=== PATIENT | female | born 1955 | race Two or more races ===

== ENCOUNTER → 2016-06-17 | Outpatient (CLI) | payer MEDICARE ==
[2016-06-17 16:46] LABS: ABSOLUTE EOSINOPHILS # (AUTO) 0.1 10^3/uL (0.0-0.6); ABSOLUTE LYMPHOCYTES (AUTO) 1.7 10^3/uL (0.5-4.7); ABSOLUTE MONOCYTES (AUTO) 0.5 10^3/uL (0.1-1.4); ABSOLUTE NEUT (AUTO) 5.8 10^3/uL (1.7-8.2); BASOPHILS % (AUTO) 0.3 % (0-2); HEMATOCRIT 40.9 % (36.0-47.0); HEMOGLOBIN 13.8 g/dL (12.0-15.5); HGB HCT DIFFERENCE 0.5; LYMPHOCYTES % (AUTO) 21.3 % (13-45); MEAN CORPUSCULAR HEMOGLOBIN 31.1 pg (27.0-33.4); MEAN CORPUSCULAR HGB CONC 33.6 g/dL (32.0-36.0); MEAN CORPUSCULAR VOLUME 92 fl (80-97); MONOCYTES % (AUTO) 6.5 % (3-13); RED BLOOD COUNT 4.43 10^6/uL (3.72-5.28); SEGMENTED NEUTROPHILS % (AUTO) 70.9 % (42-78); WHITE BLOOD COUNT 8.1 10^3/uL (4.0-10.5)
[2016-06-17 16:49] LABS: APPEARANCE,URINE CLEAR; BILIRUBIN,URINE NEGATIVE (NEGATIVE); GLUCOSE, URINE >=500 mg/dL (NEGATIVE); KETONES,URINE NEGATIVE (NEGATIVE); LEUKOCYTE ESTERASE,URINE NEGATIVE (NEGATIVE); NITRITE,URINE NEGATIVE (NEGATIVE); PROTEIN,URINE NEGATIVE (NEGATIVE); UROBILINOGEN,URINE NEGATIVE mg/dL (<2.0)
[2016-06-17 17:09] LABS: ALANINE AMINOTRANSFERASE 31 U/L (9-52); ALBUMIN 4.1 g/dL (3.5-5.0); ALKALINE PHOSPHATASE 92 U/L (38-126); ANION GAP 11 (5-19); ASPARTATE AMINO TRANSFERASE 15 U/L (14-36); BILIRUBIN,TOTAL 0.4 mg/dL (0.2-1.3); BLOOD UREA NITROGEN 14 mg/dL (7-20); CALCIUM 9.5 mg/dL (8.4-10.2); CARBON DIOXIDE 26 mmol/L (22-30); CHLORIDE 103 mmol/L (98-107); CREATININE RESULT 0.65 mg/dL (0.52-1.25); GLUCOSE 142 mg/dL (75-110); POTASSIUM 4.1 mmol/L (3.6-5.0); SODIUM 140.4 mmol/L (137-145); TOTAL PROTEIN 6.4 g/dL (6.3-8.2)
== END ==
LOC: LAB 16:30
PROVIDERS: ATTEND Internal Medicine Cardiovascular Disease
DX: E83.42 Hypomagnesemia (principal); Z79.01 Long term (current) use of anticoagulants; Z79.899 Other long term (current) drug therapy
CPT/HCPCS: 36415; 80048; 80076; 81001; 82272; 83735; 85025; 85730

== ENCOUNTER 2016-08-23 10:43 | Emergency (ER) | payer MEDICARE ==
--- NOTE | 2016-08-23 11:33 | ER Document Report ---
ED Medical Screen (RME) - General Chief Complaint: Shortness Of Breath Stated Complaint: DIFFICULTY BREATHING Time Seen by Provider: 08/23/16 11:21 Notes: Patient is a 60-year-old female presents emergency department complaining of sore throat and shortness of breath. Son states that there was sudden onset last evening and that she has been having difficulty breathing all morning. non-smoker, no history of COPD. Denies any fevers or chills. Patient upgraded to [place] level 2 with concerns for epiglottitis I have greeted and performed a rapid initial assessment of this patient. A comprehensive ED assessment and evaluation of the patient, analysis of test results and completion of the medical decision making process will be conducted by additional ED providers. Patient taken to Trauma bed 2 TRAVEL OUTSIDE OF THE [place] IN LAST 30 DAYS: No - Related Data Allergies/Adverse Reactions: No Known Allergies Allergy (Verified 08/23/16 10:59) Past Medical History - Past Medical History Cardiac Medical History: Reports: Hx Atrial Fibrillation, Hx Hypercholesterolemia, Hx Hypertension Endocrine Medical History: Reports: Hx Diabetes Mellitus Type 2 Renal/ Medical History: Denies: Hx Peritoneal Dialysis Psychiatric Medical History: Reports: Hx Depression Past Surgical History: Reports: Hx Abdominal Surgery - Hernia Repair, Hx Cholecystectomy, Hx Herniorrhaphy, Hx Hysterectomy, Hx Orthopedic Surgery - Carpal Tunnel, Hx Thyroid Surgery Physical Exam - Vital signs Vitals: Temp Pulse Resp BP Pulse Ox 97.9 F 81 20 131/74 H 98 08/23/16 10:59 08/23/16 10:59 08/23/16 10:59 08/23/16 10:59 08/23/16 10:59 - HEENT Pharynx: Normal, Other - Uvula midline. Airway patent. No evidence of tonsillar enlargement, peritonsillar abscess, retropharyngeal abscess. Neck: Normal - Respiratory Respiratory status: Respiratory distress Chest status: Nontender Breath sounds: Stridor Chest palpation: Normal Course - Vital Signs Vital signs: Temp Pulse Resp BP Pulse Ox 97.9 F 81 20 131/74 H 98 08/23/16 10:59 08/23/16 10:59 08/23/16 10:59 08/23/16 10:59 08/23/16 10:59
[2016-08-23] MEDS ORDERED: DEXAMETHASONE SOD PHOS INJ 10 MG/1 ML VIAL IV ONE (11:35)
[2016-08-23] MEDS ORDERED: RACEPINEPHRINE HCL 2.25% NEB 0.5 ML AMPUL NEB ONE (11:43)
[2016-08-23 11:53] LABS: ABSOLUTE LYMPHOCYTES (AUTO) 0.9 10^3/uL (0.5-4.7); ABSOLUTE MONOCYTES (AUTO) 0.7 10^3/uL (0.1-1.4); ABSOLUTE NEUT (AUTO) 10.4 10^3/uL (1.7-8.2); BASOPHILS % (AUTO) 0.1 % (0-2); EOSINOPHILS % (AUTO) 0.3 % (0-6); HEMATOCRIT 45.4 % (36.0-47.0); HGB HCT DIFFERENCE -0.4; LYMPHOCYTES % (AUTO) 7.2 % (13-45); MEAN CORPUSCULAR HEMOGLOBIN 30.1 pg (27.0-33.4); MEAN CORPUSCULAR VOLUME 91 fl (80-97); MONOCYTES % (AUTO) 5.7 % (3-13); RED BLOOD COUNT 4.98 10^6/uL (3.72-5.28); RED CELL DISTRIBUTION WIDTH 13.6 % (11.5-14.0); SEGMENTED NEUTROPHILS % (AUTO) 86.7 % (42-78)
[2016-08-23] MEDS ORDERED: LORAZEPAM INJ 2 MG/1 ML VIAL IV ONE (12:05)
[2016-08-23] MEDS ORDERED: CEFTRIAXONE RTU 1 GM/D5W 50 ML IV ONE (12:06)
[2016-08-23 12:13] LABS: ALANINE AMINOTRANSFERASE 32 U/L (9-52); ALBUMIN 4.5 g/dL (3.5-5.0); ALKALINE PHOSPHATASE 123 U/L (38-126); ANION GAP 13 (5-19); ASPARTATE AMINO TRANSFERASE 17 U/L (14-36); BILIRUBIN,DIRECT 0.4 mg/dL (0.0-0.4); BLOOD UREA NITROGEN 14 mg/dL (7-20); CALCIUM 9.8 mg/dL (8.4-10.2); CARBON DIOXIDE 29 mmol/L (22-30); CHLORIDE 100 mmol/L (98-107); CREATININE RESULT 0.67 mg/dL (0.52-1.25); GLUCOSE 139 mg/dL (75-110); LIPASE 58.4 U/L (23-300); POTASSIUM 4.1 mmol/L (3.6-5.0); SODIUM 142.4 mmol/L (137-145); TOTAL PROTEIN 7.2 g/dL (6.3-8.2)
--- NOTE | 2016-08-23 12:17 | ER Document Report ---
ED Respiratory Problem - General Mode of Arrival: Wheelchair Information source: Patient TRAVEL OUTSIDE OF THE [place] IN LAST 30 DAYS: No - HPI Patient complains to provider of: Cough, Short of breath Onset: This morning Duration: Continuous Initiating Event: URI Quality of pain: Achy Pain Level: 4 Context: denies: Hx asthma, Recent immobilization, Recent surgery Associated symptoms: Anxiety, Cough, Short of breath, Sore Throat. denies: Chest pain/discomfort, Congestion, Fever Similar symptoms previously: No Recently seen / treated by doctor: No <JOI GREEN - Last Filed: 08/23/16 18:26> <LOS HAUSER - Last Filed: 08/23/16 20:48> - General Chief Complaint: Shortness Of Breath Stated Complaint: DIFFICULTY BREATHING Time Seen by Provider: 08/23/16 11:21 Notes: Patient states that she had difficulty swallowing and sorethraot that woke her up around 6 AM. Patient complains of throat discomfort and a feeling like her throat is closing up. Patient reports nausea and diarrhea today but denies any vomiting. Patient does complain of mild cough. Pt states she has coughed so hard that her stomach is sore. (JOI GREEN) - Related Data Allergies/Adverse Reactions: No Known Allergies Allergy (Verified 08/23/16 10:59) Past Medical History - General Information source: Patient, Relative - Social History Smoking Status: Never Smoker Chew tobacco use (# tins/day): No Frequency of alcohol use: None Drug Abuse: None Occupation: none Lives with: Family Family History: Reviewed & Not Pertinent Patient has suicidal ideation: No Patient has homicidal ideation: No - Past Medical History Cardiac Medical History: Reports: Hx Atrial Fibrillation, Hx Hypercholesterolemia, Hx Hypertension Endocrine Medical History: Reports: Hx Diabetes Mellitus Type 2, Hx Hypothyroidism Renal/ Medical History: Denies: Hx Peritoneal Dialysis Psychiatric Medical History: Reports: Hx Depression Past Surgical History: Reports: Hx Abdominal Surgery - Hernia Repair, Hx Cholecystectomy, Hx Herniorrhaphy, Hx Hysterectomy, Hx Orthopedic Surgery - Carpal Tunnel, Hx Thyroid Surgery - Immunizations Hx Diphtheria, Pertussis, Tetanus Vaccination: No <JOI GREEN - Last Filed: 08/23/16 18:26> Review of Systems - Review of Systems Constitutional: Recent illness - URI. denies: Fever EENT: Nose congestion, Throat pain, Difficulty swallowing Cardiovascular: No symptoms reported. denies: Chest pain Respiratory: Cough, Short of breath Gastrointestinal: Abdominal pain - from coughing, Diarrhea, Nausea. denies: Vomiting Genitourinary: No symptoms reported Female Genitourinary: No symptoms reported Musculoskeletal: No symptoms reported. denies: Back pain Skin: No symptoms reported Hematologic/Lymphatic: No symptoms reported Neurological/Psychological: Headaches. denies: Weakness <JOI GREEN - Last Filed: 08/23/16 18:26> Physical Exam - General General appearance: Alert, Anxious In distress: Mild - HEENT Head: Normocephalic, [place]'s eyes Eyes: Normal Conjunctiva: Normal Ears: Normal External canal: Normal Tympanic membrane: Normal Mouth/Lips: Normal. No: Angioedema Mucous membranes: Normal Pharynx: Post nasal drainage, Other - stridor that improves with distraction. No: Erythema, Exudate, Peritonsillar abscess, Retropharyngeal abscess, Tonsillar hypertrophy, Uvular edema, Potential airway comprom. Neck: Normal, Supple. No: Lymphadenopathy - Respiratory Respiratory status: No respiratory distress. No: Depressed respirations, Labored, Retractions Chest status: Nontender Breath sounds: Nonproductive cough, Wheezing Chest palpation: Normal - Cardiovascular Rhythm: Regular Heart sounds: S1 appreciated, S2 appreciated Murmur: No - Abdominal Inspection: Normal Distension: No distension Bowel sounds: Normal Tenderness: Tender - lower pelvic tenderness with cough - Back Back: Normal, Nontender. No: CVA tenderness - Extremities General upper extremity: Normal inspection, Normal strength General lower extremity: Normal inspection, Normal strength - Neurological Neuro grossly intact: Yes Cognition: Normal [place] Coma Scale Eye Opening: Spontaneous [place] Coma Scale Verbal: Oriented [place] Coma Scale Motor: Obeys Commands [place] Coma Scale Total: 15 - Psychological Associated symptoms: Anxious, Tearful - Skin Skin Temperature: Warm Skin Moisture: Dry Skin Color: Normal <JOI GREEN - Last Filed: 08/23/16 18:26> <LOS HAUSER - Last Filed: 08/23/16 20:48> - Vital signs Vitals: Temp Pulse Resp BP Pulse Ox 97.9 F 81 20 131/74 H 98 08/23/16 10:59 08/23/16 10:59 08/23/16 10:59 08/23/16 10:59 08/23/16 10:59 - HEENT Notes: pt managing oral secretions (JOI GREEN) Course - Laboratory Result Diagrams: 08/23/16 11:30 08/23/16 11:30 - Diagnostic Test Radiology reviewed: Reports reviewed <JOI GREEN - Last Filed: 08/23/16 18:26> - Laboratory Result Diagrams: 08/23/16 11:30 08/23/16 11:30 <LOS AHUSER - Last Filed: 08/23/16 20:48> - Re-evaluation Re-evalutation: 08/23/16 12:06 dr Hauser to bedside for examination, recommends ct ST neck with iv contrast without waiting for labs to be results, also recommends ative 0.5 mg iv now. 08/23/16 13:14 Patient removed from oxygen, patient repositioned, oxygen saturation remained between 94 and 96%. Patient states that throat discomfort symptoms and difficulty breathing symptoms seem to be improved slightly. Consulted with Dr. Hauser who recommends road testing patient to see where her oxygen saturation remains. 08/23/16 15:35 Patient's vital signs remained stable, patient without any stridor, respirations even and unlabored. Patient reports that she is feeling better. Discussed worsening signs or symptoms the patient to return immediately for. Patient and her son verbalized understanding and agree with plan of care. Consulted with Dr. Hauser who recommends discharging patient with a course of steroids and giving good return precautions. (JOI GREEN) 08/23/16 20:47 I did personally seen and examined this patient, she is complaining of feeling like her throat is swelling however she is easily distractible, initially she does appear to have some stridor on exam however when distracted her breathing columns and she is no longer stridorous, CAT scan of the neck did not reveal any soft tissue swelling beyond the soft palate and this is not seen on exam, there is no RPA. Patient will be discharged home on steroids, asked to return for any further difficulty breathing. Patient is feeling much better on discharge. She does have some postnasal drip that may be contributing to the feeling of swelling in her throat. (LOS HAUSER) - Vital Signs Vital signs: Temp Pulse Resp BP Pulse Ox 98 F 81 17 144/85 H 94 08/23/16 15:48 08/23/16 10:59 08/23/16 15:42 08/23/16 15:42 08/23/16 15:42 - Laboratory Laboratory results interpreted by me: 08/23/16 08/23/16 11:30 11:30 WBC 12.0 H Seg Neutrophils % 86.7 H Lymphocytes % 7.2 L Absolute Neutrophils 10.4 H Glucose 139 H 08/23/16 15:35 Labs- Entire Visit 08/23/16 08/23/16 08/23/16 11:30 11:30 14:02 WBC 12.0 H RBC 4.98 Hgb 15.0 Hct 45.4 MCV 91 MCH 30.1 MCHC 33.0 RDW 13.6 Plt Count 150 Seg Neutrophils % 86.7 H Lymphocytes % 7.2 L Monocytes % 5.7 Eosinophils % 0.3 Basophils % 0.1 Absolute Neutrophils 10.4 H Absolute Lymphocytes 0.9 Absolute Monocytes 0.7 Absolute Eosinophils 0.0 Absolute Basophils 0.0 Sodium 142.4 Potassium 4.1 Chloride 100 Carbon Dioxide 29 Anion Gap 13 BUN 14 Creatinine 0.67 Est GFR ( Amer) > 60 Est GFR (Non-Af Amer) > 60 Glucose 139 H Calcium 9.8 Total Bilirubin 1.0 Direct Bilirubin 0.4 Indirect Bilirubin Not Reportable Neonat Total Bilirubin Not Reportable AST 17 ALT 32 Alkaline Phosphatase 123 Total Protein 7.2 Albumin 4.5 Lipase 58.4 Group A Strep Rapid NEGATIVE 08/23/16 18:26 (JOI GREEN) Discharge <JOI GREEN - Last Filed: 08/23/16 18:26> <LOS HAUSER - Last Filed: 08/23/16 20:48> - Discharge Clinical Impression: Sore throat (viral) Upper respiratory infection Qualifiers: URI type: unspecified URI Qualified Code(s): J06.9 - Acute upper respiratory infection, unspecified Condition: Stable Disposition: HOME, SELF-CARE Instructions: Upper Respiratory Illness ([facility]), Acetaminophen, Sore Throat ([facility]) , Steroid Medication Additional Instructions: Return immediately for any new or worsening symptoms Followup with your primary care provider, call tomorrow to make a followup appointment Prescriptions: Prednisone [Deltasone 20 mg Tablet] 3 tab PO DAILY 4 Days Referrals: DANNA PATE PA-C [Primary Care Provider] - 08/25/16
[2016-08-23 15:47] VITALS: BP 144/85
== END 2016-08-23 15:48 | disposition home or self-care (01) ==
LOC: ER 10:43
DX: J02.8 Acute pharyngitis due to other specified organisms (principal); B97.89 Other viral agents as the cause of diseases classified elsewhere; J06.9 Acute upper respiratory infection, unspecified; R05 Cough; R06.02 Shortness of breath; R13.10 Dysphagia, unspecified; R09.82 Postnasal drip; R09.81 Nasal congestion; R11.0 Nausea; R19.7 Diarrhea, unspecified; R10.9 Unspecified abdominal pain; R51 Headache; R06.1 Stridor; R06.2 Wheezing; I10 Essential (primary) hypertension; E11.9 Type 2 diabetes mellitus without complications; Z90.710 Acquired absence of both cervix and uterus; Z90.49 Acquired absence of other specified parts of digestive tract
CPT/HCPCS: 94640; 99285; 96375; 96365; 36415; 87040; 87070; 87880; 83690; 85025; 80053; 71010; 70360; 70491; J2060; J0696; J1100; J3490

== ENCOUNTER → 2016-09-11 | Outpatient (CLI) | payer MEDICARE ==
[2016-09-11 15:17] LABS: ABSOLUTE EOSINOPHILS # (AUTO) 0.1 10^3/uL (0.0-0.6); ABSOLUTE LYMPHOCYTES (AUTO) 1.3 10^3/uL (0.5-4.7); ABSOLUTE MONOCYTES (AUTO) 0.4 10^3/uL (0.1-1.4); ABSOLUTE NEUT (AUTO) 5.4 10^3/uL (1.7-8.2); BASOPHILS % (AUTO) 0.3 % (0-2); EOSINOPHILS % (AUTO) 0.8 % (0-6); HEMATOCRIT 41.4 % (36.0-47.0); HEMOGLOBIN 13.6 g/dL (12.0-15.5); HGB HCT DIFFERENCE -0.6; LYMPHOCYTES % (AUTO) 17.7 % (13-45); MEAN CORPUSCULAR HEMOGLOBIN 30.4 pg (27.0-33.4); MEAN CORPUSCULAR HGB CONC 32.9 g/dL (32.0-36.0); MEAN CORPUSCULAR VOLUME 92 fl (80-97); MONOCYTES % (AUTO) 5.7 % (3-13); RED BLOOD COUNT 4.49 10^6/uL (3.72-5.28); RED CELL DISTRIBUTION WIDTH 13.9 % (11.5-14.0); SEGMENTED NEUTROPHILS % (AUTO) 75.5 % (42-78); WHITE BLOOD COUNT 7.2 10^3/uL (4.0-10.5)
[2016-09-11 15:35] LABS: APPEARANCE,URINE CLEAR; BILIRUBIN,URINE NEGATIVE (NEGATIVE); GLUCOSE, URINE 500 mg/dL (NEGATIVE); KETONES,URINE 25 mg/dL (NEGATIVE)
[2016-09-11 15:36] LABS: LEUKOCYTE ESTERASE,URINE NEGATIVE (NEGATIVE); NITRITE,URINE NEGATIVE (NEGATIVE); PROTEIN,URINE 30 mg/dL (NEGATIVE); URINE SPECIFIC GRAVITY 1.029
[2016-09-11 15:37] LABS: BACTERIA,URINE TRACE /HPF
[2016-09-11 15:38] LABS: ALANINE AMINOTRANSFERASE 24 U/L (9-52); ALBUMIN 3.6 g/dL (3.5-5.0); ALKALINE PHOSPHATASE 87 U/L (38-126); ANION GAP 11 (5-19); ASPARTATE AMINO TRANSFERASE 10 U/L (14-36); BILIRUBIN,DIRECT 0.3 mg/dL (0.0-0.4); BILIRUBIN,TOTAL 0.4 mg/dL (0.2-1.3); BLOOD UREA NITROGEN 16 mg/dL (7-20); CALCIUM 9.4 mg/dL (8.4-10.2); CARBON DIOXIDE 26 mmol/L (22-30); CHLORIDE 101 mmol/L (98-107); CREATININE RESULT 0.74 mg/dL (0.52-1.25); GLUCOSE 273 mg/dL (75-110); POTASSIUM 4.3 mmol/L (3.6-5.0); SODIUM 137.6 mmol/L (137-145); TOTAL PROTEIN 6.1 g/dL (6.3-8.2)
== END ==
LOC: OD 14:16
PROVIDERS: ATTEND Internal Medicine Cardiovascular Disease
DX: I48.0 Paroxysmal atrial fibrillation (principal); E83.42 Hypomagnesemia; Z79.01 Long term (current) use of anticoagulants; Z79.899 Other long term (current) drug therapy
CPT/HCPCS: 36415; 80048; 80076; 81001; 83735; 84443; 85025; 85730